=== PATIENT | male | born 1990 | race Caucasian/White ===

== ENCOUNTER 2017-05-30 19:10 | Emergency (ER) | payer BC, OTHER ==
--- NOTE | 2017-05-30 19:26 | EDM.PDOC ---
ED HPI GENERAL MEDICAL PROBLEM - General Chief Complaint: Lower Extremity Injury/Pain Stated Complaint: PAIN/SWELLING LT FOOT Time Seen by Provider: 05/30/17 19:18 - History of Present Illness INITIAL COMMENTS - FREE TEXT/NARRATIVE: HISTORY AND PHYSICAL: History of present illness: Patient is a 26-year-old white male who presents with concern of left foot/ ankle pain he does not recall any particular injury was concerned about radiographs for possible fracture no fever chills nausea vomiting or other complaints Review of systems: As per history of present illness and below otherwise all systems reviewed and negative. Past medical history: As per history of present illness and as reviewed below otherwise noncontributory. Surgical history: As per history of present illness and as reviewed below otherwise noncontributory. Social history: No reported history of drug or alcohol abuse. Family history: As per history of present illness and as reviewed below otherwise noncontributory. Physical exam: HEENT: Atraumatic, normocephalic, pupils reactive, negative for conjunctival pallor or scleral icterus, mucous membranes moist, throat clear, neck supple, nontender, trachea midline. Lungs: Clear to auscultation, breath sounds equal bilaterally, chest nontender. Heart: S1S2, regular, negative for clicks, rubs, or JVD. Abdomen: Soft, nondistended, nontender. Negative for masses or hepatosplenomegaly. Negative for costovertebral tenderness. Pelvis: Stable nontender. Genitourinary: Deferred. Rectal: Deferred. Extremities: Atraumatic, negative for cords or calf pain. Left foot and ankle are without erythema any significant swelling or point tenderness CMS neurovascular exam are unremarkable Neuro: Awake, alert, oriented. Cranial nerves II through XII unremarkable. Cerebellum unremarkable. Motor and sensory unremarkable throughout. Exam nonfocal. Diagnostics: X-ray left foot/ankle Therapeutics: None Impression: #1 atraumatic left foot/ankle pain Definitive disposition and diagnosis as appropriate pending reevaluation and review of above. - Related Data Allergies Allergy/AdvReac Type Severity Reaction Status Date / Time No Known Allergies Allergy Verified 06/06/15 13:35 Home Meds: Home Meds Calcium Polycarbophil [Fiber-Tabs] 625 mg PO 06/06/15 [History] L.acidoph,Paracasei, B.lactis [Probiotic] 1 each PO 06/06/15 [History] Past Medical History Other Neuro History: mulitple buldging discs L1-L4 Social & Family History - Tobacco Use Smoking Status *Q: Never Smoker Second Hand Smoke Exposure: No - Alcohol Use Days Per Week of Alcohol Use: 1 Number of Drinks Per Day: 3 Total Drinks Per Week: 3 - Recreational Drug Use Recreational Drug Use: No Review of Systems - Review of Systems Review Of Systems: ROS reveals no pertinent complaints other than HPI. ED EXAM, GENERAL - Physical Exam Exam: See Below (See dictation) Course - Orders/Labs/Meds Orders: Active Orders 24 hr Category Date Time Status Ankle Min 3V Lt [CR] Stat Exams 05/30/17 19:23 Ordered Foot 2V Lt [CR] Stat Exams 05/30/17 19:23 Ordered Departure - Departure Time of Disposition: 19:25 Disposition: Home, Self-Care 01 Condition: Good Clinical Impression: Left ankle pain - Discharge Information Referrals: Ed Benito [Primary Care Provider] - Additional Instructions: The following information is given to patients seen in the emergency department who are being discharged to home. This information is to outline your options for follow-up care. We provide all patients seen in our emergency department with a follow-up referral. The need for follow-up, as well as the timing and circumstances, are variable depending upon the specifics of your emergency department visit. If you don't have a primary care physician on staff, we will provide you with a referral. We always advise you to contact your personal physician following an emergency department visit to inform them of the circumstance of the visit and for follow-up with them and/or the need for any referrals to a consulting specialist. The emergency department will also refer you to a specialist when appropriate. This referral assures that you have the opportunity for followup care with a specialist. All of these measure are taken in an effort to provide you with optimal care, which includes your followup. Under all circumstances we always encourage you to contact your private physician who remains a resource for coordinating your care. When calling for followup care, please make the office aware that this follow-up is from your recent emergency room visit. If for any reason you are refused follow-up, please contact the [facility] emergency department at and asked to speak to the emergency department charge nurse. Maira Stringer [facility] - Podiatry [address] [place], [place] [id number] Fax: [phone] Motrin/Tylenol as directed for pain follow-up private medical doctor/podiatry as discussed return as needed as discussed - My Orders Last 24 Hours: My Active Orders 05/30/17 19:23 Ankle Min 3V Lt [CR] Stat Foot 2V Lt [CR] Stat - Assessment/Plan Last 24 Hours: My Active Orders 05/30/17 19:23 Ankle Min 3V Lt [CR] Stat Foot 2V Lt [CR] Stat
[2017-05-30 20:47] VITALS: BP 123/78
--- NOTE | 2017-05-31 10:27 | CR ---
EXAM DATE: 05/30/17 PATIENT'S AGE: 26 Patient: ANGELA KRAUSE Facility: [place], [place] Site . Site : 1990 Study: XRay Extremity foot [id number]/19/2017 7:57:15 PM Ordering Physician: Wilson Ya Final Report: Indication: Pain, no history of injury Technique: Two views left foot Comparison: None Findings: Bones: Alignment is normal. No fractures or bone lesions. Joint spaces: Unremarkable. Soft tissues: Unremarkable. Impression: Negative. Dictated by Laurie Galindo MD @ May 30 2017 8:45PM (Electronic Signature) Report Signed by Proxy. MANUEL
--- NOTE | 2017-05-31 10:28 | CR ---
EXAM DATE: 05/30/17 PATIENT'S AGE: 26 Patient: ANGELA KRAUSE Facility: [place], [place] Site . Site : 1990 Study: XRay Extremity ankle [id number]/19/2017 7:57:37 PM Ordering Physician: Wilson Ya Final Report: Left ankle 3 VIEWS INDICATION: Pain. IMPRESSION: No visualized fracture. Alignments anatomic. Joint spaces unremarkable. Dictated by David Mills MD @ May 30 2017 8:08PM (Electronic Signature) Report Signed by Proxy. MANUEL
== END 2017-05-30 20:26 | disposition home or self-care (01) ==
LOC: MW.ED 19:10
DX: M25.572 Pain in left ankle and joints of left foot (principal)
CPT/HCPCS: 73610-26-LT; 73610-LT; 73620-26-LT; 73620-LT; 99282; 99283

== ENCOUNTER 2017-07-08 08:39 | Emergency (ER) | payer OTHER ==
[2017-07-08] MEDS ORDERED: Ketorolac 60 MG/2 ML SDV IM ONE (09:08)
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
[2017-07-08 09:35] VITALS: BP 132/76
== END 2017-07-08 09:35 | disposition home or self-care (01) ==
LOC: MW.ED 08:39
DX: G89.29 Other chronic pain (principal); M54.5 Low back pain
CPT/HCPCS: 96372; 99283; J1885; 99284

== ENCOUNTER 2017-07-23 12:47 | Day surgery (SDC) | payer OTHER ==
[~2017-07-23 12:47] MED LIST: Betamethasone Acetate/Betamethasone Sod Phosphate 30 MG/5 ML MDV ONE; Iopamidol 408 MG/ML 50 ML SDV ONE; Lidocaine 2% 5 ML SDV ONE; Ropivacaine 0.5% 5 MG/ML 30 ML SDV ONE
--- NOTE | 2017-07-23 21:27 | OR ---
SURGEON: Alycia Martinez D.O. DATE OF PROCEDURE: 07/23/2017 OR STAFF PRESENT: 1. Quinten Rust RN. 2. Dean Cardenas RN. 3. RT Gm. WOUND CLASSIFICATION: I. PREOPERATIVE DIAGNOSES: 1. Failed back surgery syndrome. 2. Lumbar herniated disk. 3. Lumbar radiculopathy. POSTOPERATIVE DIAGNOSES: 1. Failed back surgery syndrome. 2. Lumbar herniated disk. 3. Lumbar radiculopathy. PROCEDURE PERFORMED: 1. Caudal epidural steroid injection. 2. Fluoroscopic guidance for needle placement. 3. Local with oral Valium for sedation. SCREENING QUESTIONS: The patient answered "no" to all of the following questions: 1. Are you allergic to latex? 2. Do you have a bleeding disorder? 3. Do you have any current local or systemic infections? 4. Are you taking any anti-inflammatories or blood thinners? 5. Do you have any joint replacements, heart valve replacements, or a pacemaker? DESCRIPTION OF PROCEDURE: The patient had the procedure thoroughly explained including all possible risks, benefits and alternatives. Consent was signed in my clinic indicating understanding and willingness to proceed. The patient presented to [facility] [place] and was escorted to the dressing room to disrobe and change into a hospital gown. Preoperative vital signs were taken and stable. The patient reported that Valium was taken prior to the procedure. The patient was brought back to the procedure room and placed in the prone position on the procedure room table. A pillow was placed under the hips in order to flatten the lumbar lordosis. The back was prepped with ChloraPrep and sterilely draped. All personnel in the operating room were dressed in appropriate attire including surgical scrubs, head and shoe covers. This was to ensure sterility while in the treatment room. During the time fluoroscopy was in use, all personnel in the operating room wore lead lloyd with thyroid collars. Sterile technique was used throughout the procedure. The patient was awake and conversant throughout the procedure. There was no evidence of infection at the site of needle insertion. Skeletal landmarks were identified under fluoroscopy for the caudal epidural. Skin was anesthetized with 2% lidocaine with a sterile 27-gauge 1.5 inch needle. Then a 20-gauge Tuohy epidural needle was placed in the epidural space with loss of resistance technique under fluoroscopic guidance. No heme, cerebrospinal fluid, or paresthesias were noted. Isovue-200 contrast dye was injected in 0.2 cubic centimeter increments and seen to outline the epidural space in both AP and lateral views. There was no intravascular flow pattern observed under live fluoroscopy. Then 12 milligrams of Celestone was slowly injected after negative aspiration. The patient tolerated the procedure well. Vital signs were stable during and after the procedure. The staff escorted the patient to the recovery area and the patient was released in stable condition after a brief stay in the recovery room monitored by the nurse. The patient was given both oral and written discharge and follow up instructions with recommendation to follow up given for 2-3 weeks. The patient voiced understanding including understanding of those signs and symptoms that would require emergency care. The patient knows how to contact the office if there are any additional problems or questions in the meantime. PREOPERATIVE PAIN: 5/10. POSTOPERATIVE PAIN: 2/10. FOLLOWUP: Follow up in the Pain Clinic with 3 weeks. BRANDEN ALVAREZ /[id number] MANUEL
== END 2017-07-23 15:12 ==
LOC: MW.SDS 12:47
PROVIDERS: ATTEND Anesthesiology
DX: M96.1 Postlaminectomy syndrome, not elsewhere classified (principal); M21.969 Unspecified acquired deformity of unspecified lower leg; F41.9 Anxiety disorder, unspecified; F98.8 Other specified behavioral and emotional disorders with onset usually occurring in childhood and adolescence; F32.9 Major depressive disorder, single episode, unspecified; N62 Hypertrophy of breast; E66.3 Overweight; M25.373 Other instability, unspecified ankle; M21.42 Flat foot [pes planus] (acquired), left foot; M21.41 Flat foot [pes planus] (acquired), right foot; Q66.89 Other specified congenital deformities of feet; Z79.899 Other long term (current) drug therapy; M51.36 Other intervertebral disc degeneration, lumbar region; M51.16 Intervertebral disc disorders with radiculopathy, lumbar region; M46.97 Unspecified inflammatory spondylopathy, lumbosacral region; Z98.1 Arthrodesis status; Z68.32 Body mass index [BMI] 32.0-32.9, adult
CPT/HCPCS: 36415; 62323; 80053; 83001; 83002; 84402; 84439; 84443; 85025; J0702; J2795; Q9966

== ENCOUNTER 2017-09-04 06:22 | Day surgery (SDC) | payer OTHER ==
[2017-09-04] MEDS ORDERED: Dexamethasone 4 MG/ML 5 ML MDV ONE (07:05)
[2017-09-04] MEDS ORDERED: fentaNYL 100 MCG/2 ML SDV ONE ×3 (07:05→08:59)
[2017-09-04] MEDS ORDERED: Ondansetron 4 MG/2 ML SDV ONE (07:05)
[2017-09-04] MEDS ORDERED: Propofol 200 MG/20 ML SDV ONE (07:05)
[2017-09-04] MEDS ORDERED: Midazolam 1 MG/ML 2 ML SDV ONE (07:05)
--- NOTE | 2017-09-04 07:10 | PCM.PREANE ---
Preanesthetic Assessment - Anesthesia/Transfusion/Family Hx Anesthesia History: Prior Anesthesia Without Reaction Family History of Anesthesia Reaction: No Transfusion History: No Prior Transfusion(s) - Review of Systems General: No Symptoms Pulmonary: No Symptoms Cardiovascular: No Symptoms Gastrointestinal: No Symptoms Neurological: No Symptoms Other: Reports: None - Physical Assessment NPO Status Date: 09/03/17 NPO Status Time: 19:00 O2 Sat by Pulse Oximetry: 97 Respiratory Rate: 16 Vital Signs: Last Vital Signs Temp 36.2 C 09/04/17 06:45 Pulse 57 L 09/04/17 06:45 Resp 16 09/04/17 06:45 BP 128/86 09/04/17 06:45 Pulse Ox 97 09/04/17 06:45 Height: 1.91 m Weight: 111.13 kg ASA Class: 2 Mental Status: Alert & Oriented x3 Dentition: Reports: Normal Dentition ROM/Head Extension: Full Lungs: Clear to Auscultation, Normal Respiratory Effort Cardiovascular: Regular Rate, Regular Rhythm - Allergies Allergies/Adverse Reactions: Allergies Allergy/AdvReac Type Severity Reaction Status Date / Time No Known Allergies Allergy Verified 07/08/17 08:58 - Anesthesia Plan Pre-Op Medication Ordered: None - Acknowledgements Anesthesia Type Planned: General Anesthesia, MAC Pt an Appropriate Candidate for the Planned Anesthesia: Yes Alternatives and Risks of Anesthesia Discussed w Pt/Guardian: Yes Pt/Guardian Understands and Agrees with Anesthesia Plan: Yes Additional Comments: PMH: chronic pain/post laminectomy symdrome, ADD, resting bradycardia PreAnesthesia Questionnaire HEENT History: Reports: Other (See Below) Other HEENT History: wears glasses Cardiovascular History: Reports: None Respiratory History: Reports: Other (See Below) Other Respiratory History: asthma as a child Gastrointestinal History: Reports: Other (See Below) Other Gastrointestinal History: occasional heartburn Genitourinary History: Reports: None Musculoskeletal History: Reports: Back Pain, Chronic, Fracture, Other (See Below ) Other Musculoskeletal History: hx fx elbow, back surgery 2014, Laminectomy, discectomy L4/5 Neurological History: Reports: None Psychiatric History: Reports: ADD, Anxiety, Depression Endocrine/Metabolic History: Reports: None Dermatologic History: Reports: None - Infectious Disease History Infectious Disease History: Reports: Influenza - Past Surgical History Head Surgeries/Procedures: Reports: None HEENT Surgical History: Reports: None Cardiovascular Surgical History: Reports: None Respiratory Surgical History: Reports: None Neurological Surgical History: Reports: Laminectomy - SUBSTANCE USE Smoking Status *Q: Never Smoker Second Hand Smoke Exposure: No Days Per Week of Alcohol Use: 1 Number of Drinks Per Day: 3 Total Drinks Per Week: 3 Recreational Drug Use History: No - HOME MEDS Home Medications: Home Meds Cyanocobalamin/FA/Pyridoxine [Folbic] 1 tab PO BID 09/02/17 [History] Diclofenac Sodium [Voltaren] 1 applic TOP ASDIRECTED PRN 09/02/17 [History] FLUoxetine HCl [Fluoxetine HCl] 20 mg PO DAILY 09/02/17 [History] Ketamine HCl [Ketamine Hydrochloride] 1 applic TOP TID PRN 09/02/17 [History] Lidocaine/Prilocaine [Lidocaine-Prilocaine Cream] 1 applic TOP ASDIRECTED PRN [History] - CURRENT (IN HOUSE) MEDS Current Meds: Current Medications Hydrocodone Bitart/Acetaminophen ([place] 325-5 Mg) 1 tab PO Q4H PRN PRN Reason: Pain Bupivacaine HCl/Epinephrine Bitart (Marcaine 0.25%/Epinephrine 1:200,000) 30 ml INJECT ONETIME ONE Stop: 09/04/17 08:01 Cefazolin Sodium/Dextrose 2 gm (/ Premix) 50 mls @ 100 mls/hr IV ONETIME ONE Stop: 09/04/17 08:29 Lactated Ringer's (Ringers, Lactated) 1,000 mls @ 500 mls/hr IV .BOLUS JONNY Discontinued Medications Dexamethasone (Dexamethasone) Confirm Administered Dose 20 mg .ROUTE .STK-MED ONE Stop: 09/04/17 07:06 Fentanyl (Sublimaze) Confirm Administered Dose 100 mcg .ROUTE .STK-MED ONE Stop: 09/04/17 07:06 Lidocaine HCl (Xylocaine-Mpf 1%) Confirm Administered Dose 5 ml .ROUTE .STK-MED ONE Stop: 09/04/17 07:06 Midazolam HCl (Versed 1 Mg/Ml) Confirm Administered Dose 2 mg .ROUTE .STK-MED ONE Stop: 09/04/17 07:06 Ondansetron HCl (Zofran) Confirm Administered Dose 4 mg .ROUTE .STK-MED ONE Stop: 09/04/17 07:06 Propofol (Diprivan 20 Ml) Confirm Administered Dose 200 mg .ROUTE .STK-MED ONE Stop: 09/04/17 07:06
[2017-09-04] MEDS ORDERED: Bupivacaine 25%/EPINEPHrine/PF 30 ML ONE (07:20)
[2017-09-04] MEDS ORDERED: Rocuronium 10 MG/ML 10 ML Syringe ONE (07:45)
[2017-09-04] MEDS ORDERED: Succinylcholine/Normal Saline 200 MG/10 ML Syringe ONE (07:45)
[2017-09-04] MEDS ORDERED: Glycopyrrolate 0.2 MG/ML SDV ONE (07:52)
[2017-09-04] MEDS ORDERED: Acetaminophen/HYDROcodone 325-5 MG Tab PO PRN (08:00)
[2017-09-04] MEDS ORDERED: Bupivacaine 0.25%/EPINEPHrine 1:200,000 10 ML SDV INJECT ONE (08:00)
[2017-09-04] MEDS ORDERED: Lactated Ringers 1,000 ML IV SCH (08:00)
[2017-09-04] MEDS ORDERED: ceFAZolin 2 GM in Premix Bag 1 BAG IV ONE (08:00)
[2017-09-04] MEDS ORDERED: Mineral Oil/Petrolatum Ophth Oint 3.5 GM Tube ONE (08:02)
[2017-09-04] MEDS ORDERED: fentaNYL 100 MCG/2 ML SDV IVPUSH PRN (08:12)
--- NOTE | 2017-09-04 11:11 | PCM.POSTAN ---
POST ANESTHESIA ASSESSMENT - MENTAL STATUS Mental Status: Alert, Oriented - RESPIRATORY Respiratory Status: Respiratory Rate WNL, Airway Patent, O2 Saturation Stable - CARDIOVASCULAR CV Status: Pulse Rate WNL, Blood Pressure Stable - GASTROINTESTINAL GI Status: No Symptoms - POST OP HYDRATION Hydration Status: Adequate & Stable
--- NOTE | 2017-09-04 11:11 | PCM48HPAN ---
Post Anesthesia Note - EVALUATION WITHIN 48HRS OF ANESTHETIC Vital Signs in Normal Range: Yes Patient Participated in Evaluation: Yes Respiratory Function Stable: Yes Airway Patent: Yes Cardiovascular Function Stable: Yes Hydration Status Stable: Yes Pain Control Satisfactory: Yes Nausea and Vomiting Control Satisfactory: Yes Mental Status Recovered: Yes
[2017-09-04 13:24] VITALS: BP 123/78
--- NOTE | 2017-09-05 14:45 | PCM.OPNOTE ---
- General Post-Op/Procedure Note Date of Surgery/Procedure: 09/05/17 Operative Procedure(s): excision of bilateral gynecomastia Pre Op Diagnosis: bilateral gynecomastia Post-Op Diagnosis: Same Anesthesia Technique: General LMA, Local Primary Surgeon: Krystle Hays Associate Professor Of Education: Laurie Durán Complications: None Condition: Good Free Text/Narrative:: [id number]
--- NOTE | 2017-09-05 21:00 | OR ---
SURGEON: JOSE LANIER MD DATE OF PROCEDURE: 09/04/2017 PREOPERATIVE DIAGNOSIS: Bilateral gynecomastia. POSTOPERATIVE DIAGNOSIS: Bilateral gynecomastia. PROCEDURE: Bilateral mastectomy for bilateral gynecomastia. CONSULTANT INTERNSHIP: ESME Rodriguez. REASON: Retraction, prepping, draping and closure assistance. ANESTHESIA: General with local. INDICATIONS: Mr. Ayoub is a 26-year-old gentleman, who was seen today in evaluation for bilateral gynecomastia. Risks and benefits of the procedure were discussed with him and he is in agreement to proceed. Risks were including, but not limited to, bleeding, infection, damage to underlying or overlying structures, possible need for future interventions and possible scarring. DESCRIPTION OF PROCEDURE: After informed consent was obtained and placed on the chart, the patient was brought to the operating theater and laid in the supine position. After adequate general anesthesia was obtained, the area was prepped and draped and a time-out was completed to confirm side and site. Local anesthesia was then infiltrated into the area after appropriate markings and once adequately marked and anesthetized, a small curvilinear incision was made over the superior aspect of the nipple-areolar complex and extended laterally in an asymmetric fashion for each side was designed and cut through. Dissection was carried through the subcutaneous tissues and to the breast tissue using Bovie electrocautery. A thick flap of approximately 1.5 cm of skin and subcutaneous tissue were maintained and the underlying gynecomastia was then excised en bloc in an elliptical fashion, tapering at the edges to ensure smooth contour. Once this was completed and fully excised, and peeled off the chest wall, the area was copiously irrigated. Meticulous hemostasis was obtained and a minimal amount of liposuction was done to taper the side to allow appropriate contour and free of the fat from its firm attachments. Once this was completed, meticulous hemostasis was obtained. The area was irrigated and closed using deep 3-0 Monocryl stitches for the fascia and then appropriate amount of skin was determined to need excision to lift the nipple-areolar complex approximately 1.5 cm. Once this was designed, it was cut off and the underlying subcutaneous tissue was left in place, stacked under the nipple to create an appropriate projection here. The skin edges were freed up to allow tension-free closure and then the skin was closed using deep 3-0 Monocryl stitches and a running 4-0 subcuticular for the skin. The patient tolerated this well and all counts and needles were correct at the end of the case when symmetric procedure was completed on the opposite side. Once the wounds were closed and dressed with Steri-Strips, fluffs were placed as well as a chest compression dressing. The patient tolerated this well. All counts and needles were correct at the end of the case. FOLLOWUP INSTRUCTIONS: The patient was given a prescription for pain control. He will see us in clinic tomorrow or sooner if any problems, questions, or concerns. HEGGTHE / ANTONIO /[id number] MTDRyland
== END 2017-09-04 11:30 | disposition home or self-care (01) ==
LOC: MW.SDS 06:22
PROVIDERS: ATTEND Plastic Surgery
DX: N62 Hypertrophy of breast (principal); M21.969 Unspecified acquired deformity of unspecified lower leg; F41.9 Anxiety disorder, unspecified; F88 Other disorders of psychological development; F32.9 Major depressive disorder, single episode, unspecified; M79.1 Myalgia; E66.3 Overweight; J45.909 Unspecified asthma, uncomplicated; Z79.899 Other long term (current) drug therapy; Z68.30 Body mass index [BMI] 30.0-30.9, adult; Z98.890 Other specified postprocedural states
CPT/HCPCS: 19304; A9270; J1100; J2250; J2405; J3010; J7120; 00400; 88305; J2704

== ENCOUNTER 2017-11-20 08:06 | Emergency (ER) | payer OTHER ==
--- NOTE | 2017-11-20 08:28 | EDM.PDOC ---
ED HPI GENERAL MEDICAL PROBLEM - General Chief Complaint: Back Pain or Injury Stated Complaint: BACK PAIN Time Seen by Provider: 11/20/17 08:25 Source of Information: Reports: Patient - History of Present Illness INITIAL COMMENTS - FREE TEXT/NARRATIVE: HISTORY AND PHYSICAL: History of present illness: [Patient with history of disc bulge and laminectomy presents with acute on chronic low back pain, he has followed with Dr. Taylor and is using Lidoderm patches as well as another topical anti-inflammatory with some benefit however today pain is 8 out of 10 nonradiating he does experience usual radiculopathy on the right this is ongoing no footdrop saddle anesthesia bowel or urine symptoms No Fever nausea vomiting chills sweats] Denies new injury or trauma Review of systems: As per history of present illness and below otherwise all systems reviewed and negative. Past medical history: As per history of present illness and as reviewed below otherwise noncontributory. Surgical history: As per history of present illness and as reviewed below otherwise noncontributory. Social history: No reported history of drug or alcohol abuse. Family history: As per history of present illness and as reviewed below otherwise noncontributory. Physical exam: HEENT: Atraumatic, normocephalic, pupils reactive, negative for conjunctival pallor or scleral icterus, mucous membranes moist, throat clear, neck supple, nontender, trachea midline. Lungs: Clear to auscultation, breath sounds equal bilaterally, chest nontender. Heart: S1S2, regular, negative for clicks, rubs, or JVD. Abdomen: Soft, nondistended, nontender. Negative for masses or hepatosplenomegaly. Negative for costovertebral tenderness. Pelvis: Stable nontender. Genitourinary: Deferred. Rectal: Deferred. Extremities: Atraumatic, negative for cords or calf pain. Neurovascular unremarkable. Neuro: Awake, alert, oriented. Cranial nerves II through XII unremarkable. Cerebellum unremarkable. Motor and sensory unremarkable throughout. Exam nonfocal. Diagnostics: [Clinical ] Therapeutics: [ Toradol 60 IM Medrol Dosepak Toradol 10 mg by mouth 3 times a day #15 no refi ll] Impression: [ acute on chronic low back pain ] Definitive disposition and diagnosis as appropriate pending reevaluation and review of above. - Related Data Allergies Allergy/AdvReac Type Severity Reaction Status Date / Time No Known Allergies Allergy Verified 07/08/17 08:58 Home Meds: Home Meds Diclofenac Sodium [Voltaren] 1 applic TOP ASDIRECTED PRN 09/02/17 [History] FLUoxetine HCl [Fluoxetine HCl] 20 mg PO DAILY 09/02/17 [History] Lidocaine/Prilocaine [Lidocaine-Prilocaine Cream] 1 applic TOP ASDIRECTED PRN [History] Past Medical History HEENT History: Reports: Other (See Below) Other HEENT History: wears glasses Cardiovascular History: Reports: None Respiratory History: Reports: Other (See Below) Other Respiratory History: asthma as a child Gastrointestinal History: Reports: Other (See Below) Other Gastrointestinal History: occasional heartburn Genitourinary History: Reports: None Musculoskeletal History: Reports: Back Pain, Chronic, Fracture, Other (See Below ) Other Musculoskeletal History: hx fx elbow, back surgery 2014, Laminectomy, discectomy L4/5 Neurological History: Reports: None Psychiatric History: Reports: ADD, Anxiety, Depression Endocrine/Metabolic History: Reports: None Dermatologic History: Reports: None - Infectious Disease History Infectious Disease History: Reports: Influenza - Past Surgical History Head Surgeries/Procedures: Reports: None HEENT Surgical History: Reports: None Cardiovascular Surgical History: Reports: None Respiratory Surgical History: Reports: None Neurological Surgical History: Reports: Laminectomy Social & Family History - Family History Family Medical History: Noncontributory - Tobacco Use Smoking Status *Q: Never Smoker Second Hand Smoke Exposure: No - Caffeine Use Caffeine Use: Reports: Coffee - Alcohol Use Days Per Week of Alcohol Use: 1 Number of Drinks Per Day: 3 Total Drinks Per Week: 3 - Recreational Drug Use Recreational Drug Use: No ED ROS GENERAL - Review of Systems Review Of Systems: ROS reveals no pertinent complaints other than HPI. ED EXAM, GENERAL - Physical Exam Exam: See Below Course - Vital Signs Last Recorded V/S: Last Vital Signs Temp 96.6 F 11/20/17 08:15 Pulse 65 11/20/17 08:15 Resp 14 11/20/17 08:15 BP 120/69 11/20/17 08:15 Pulse Ox 95 11/20/17 08:15 Departure - Departure Time of Disposition: 08:27 Disposition: Home, Self-Care 01 Condition: Good Clinical Impression: Acute exacerbation of chronic low back pain - Discharge Information Referrals: Ed Castro PA [Primary Care Provider] - Additional Instructions: The following information is given to patients seen in the emergency department who are being discharged to home. This information is to outline your options for follow-up care. We provide all patients seen in our emergency department with a follow-up referral. The need for follow-up, as well as the timing and circumstances, are variable depending upon the specifics of your emergency department visit. If you don't have a primary care physician on staff, we will provide you with a referral. We always advise you to contact your personal physician following an emergency department visit to inform them of the circumstance of the visit and for follow-up with them and/or the need for any referrals to a consulting specialist. The emergency department will also refer you to a specialist when appropriate. This referral assures that you have the opportunity for follow-up care with a specialist. All of these measure are taken in an effort to provide you with optimal care, which includes your follow-up. Under all circumstances we always encourage you to contact your private physician who remains a resource for coordinating your care. When calling for follow-up care, please make the office aware that this follow-up is from your recent emergency room visit. If for any reason you are refused follow-up, please contact the [facility] emergency department at and asked to speak to the emergency department charge nurse.
[2017-11-20] MEDS: Ketorolac 60 MG/2 ML SDV IM ONE (08:39)
[2017-11-20 09:11] VITALS: BP 117/76
== END 2017-11-20 09:07 | disposition home or self-care (01) ==
LOC: MW.ED 08:06
DX: M54.5 Low back pain (principal); G89.29 Other chronic pain; Z79.899 Other long term (current) drug therapy
CPT/HCPCS: 96372; 99283; J1885

== ENCOUNTER 2018-02-23 21:51 | Emergency (ER) | payer OTHER ==
[2018-02-23] MEDS ORDERED: Diphtheria,Pertussis(Acell),Tetanus Vaccine 0.5 ML Syringe IM ONE (22:07)
[2018-02-23] MEDS ORDERED: Cephalexin 500 MG Cap PO ONE (22:07)
[2018-02-23] MEDS ORDERED: Bacitracin Oint 1 GM U/D Packet TOP ONE (22:08)
--- NOTE | 2018-02-23 22:13 | EDM.PDOC ---
ED HPI GENERAL MEDICAL PROBLEM - General Chief Complaint: Laceration Stated Complaint: LACERATION LT THUMB Time Seen by Provider: 02/23/18 22:03 - History of Present Illness INITIAL COMMENTS - FREE TEXT/NARRATIVE: HISTORY AND PHYSICAL: History of present illness: The patient is a 27-year-old male who presents after cutting his left thumb with a drill as he was working on a metal plate. The patient is right-hand dominant and is unsure of his last tetanus shot and was at home doing this work when he cut the area. He denies any other injuries to the rest of the fingers or the hand on the left side and was in his usual state of good health prior to arrival. Patient says he's able to move the thumb without defects or deformities and there is no numbness or tingling in the thumb. Review of systems: As per history of present illness and below otherwise all systems reviewed and negative. Past medical history: As per history of present illness and as reviewed below otherwise noncontributory. Surgical history: As per history of present illness and as reviewed below otherwise noncontributory. Social history: No reported history of drug or alcohol abuse. Family history: As per history of present illness and as reviewed below otherwise noncontributory. Physical exam: General: Well-developed well-nourished man who is nontoxic and vital signs are noted by me HEENT: Atraumatic, normocephalic, negative for conjunctival pallor or scleral icterus, mucous membranes moist, throat clear, neck supple, nontender, trachea midline. Lungs: Clear to auscultation, breath sounds equal bilaterally, chest nontender. Heart: S1S2, regular rate and rhythm no overt murmurs Abdomen: Soft, nondistended, nontender. NABS Pelvis: Deferred Genitourinary: Deferred. Rectal: Deferred. Extremities: Atraumatic, full range of motion of all extremities with the exception of the left thumb where there is a 4.5 cm linear laceration originating on the palmar surface of the thumb near the MCP and extending around the proximal phalanx and extending up to the PIP on the index finger side. Able to flex and extend and oppose against resistance without deficits. The legs are negative for cords or calf pain. Neurovascular unremarkable. Neuro: Awake, alert, oriented. Cranial nerves II through XII unremarkable. Cerebellum unremarkable. Motor and sensory unremarkable throughout. Exam nonfocal. Diagnostics: [] Therapeutics: Cleansing of the wound lidocaine for digital block and local infiltration, Keflex Procedure note: After the wound was cleansed by nursing a block and local infiltration of lidocaine without epinephrine was infused and the wound was explored. The wound was prepped and draped first then explored and no foreign bodies were appreciated. The skin edges were reapproximated using simple interrupted sutures for a total number of # 10 sutures of 4-0 nylon. Bacitracin and a tube gauze were applied and the patient tolerated the procedure well. There were no complications. The wound was simple to mildly complex due to the depth and location. The patient will be given Keflex for home Impression: Left thumb laceration Definitive disposition and diagnosis as appropriate pending reevaluation and review of above. Left 1-Thumb Pain Score (Numeric/FACES): 4 - Related Data Allergies Allergy/AdvReac Type Severity Reaction Status Date / Time No Known Allergies Allergy Verified 02/07/18 09:18 Home Meds: Home Meds FLUoxetine HCl [Fluoxetine HCl] 20 mg PO DAILY 09/02/17 [History] Methylphenidate HCl [Methylphenidate ER] 18 mg PO DAILY 02/07/18 [History] Past Medical History HEENT History: Reports: Other (See Below) Other HEENT History: wears glasses Cardiovascular History: Reports: None Respiratory History: Reports: Other (See Below) Other Respiratory History: asthma as a child Gastrointestinal History: Reports: Other (See Below) Other Gastrointestinal History: occasional heartburn Genitourinary History: Reports: None Musculoskeletal History: Reports: Back Pain, Chronic, Fracture, Other (See Below ) Other Musculoskeletal History: hx fx elbow, back surgery 2015, Laminectomy, discectomy L4/5 Neurological History: Reports: None Psychiatric History: Reports: ADD, Anxiety, Depression Endocrine/Metabolic History: Reports: None Dermatologic History: Reports: None - Infectious Disease History Infectious Disease History: Reports: Influenza - Past Surgical History Head Surgeries/Procedures: Reports: None HEENT Surgical History: Reports: None Cardiovascular Surgical History: Reports: None Respiratory Surgical History: Reports: None Neurological Surgical History: Reports: Laminectomy Social & Family History - Family History Family Medical History: Noncontributory - Tobacco Use Smoking Status *Q: Never Smoker - Caffeine Use Caffeine Use: Reports: Coffee ED ROS GENERAL - Review of Systems Review Of Systems: ROS reveals no pertinent complaints other than HPI. ED EXAM, SKIN/RASH Exam: See Below (See dictation) Course - Vital Signs Last Recorded V/S: Last Vital Signs Temp 36.2 C 02/23/18 22:02 Pulse 74 02/23/18 22:02 Resp 18 02/23/18 22:02 BP 139/82 02/23/18 22:02 Pulse Ox 97 02/23/18 22:02 - Orders/Labs/Meds Orders: Active Orders 24 hr Category Date Time Status Vaccines to be Administered [RC] PER UNIT ROUTINE Care 02/23/18 22:08 Active Meds: Medications Discontinued Medications Generic Name Dose Route Start Last Admin Trade Name Freq PRN Reason Stop Dose Admin Bacitracin 1 dose 02/23/18 22:08 02/23/18 22:22 Bacitracin Oint 1 Gm TOP 02/23/18 22:09 1 dose ONETIME ONE Administration Cephalexin 500 mg 02/23/18 22:07 02/23/18 22:23 Keflex PO 02/23/18 22:08 500 mg ONETIME ONE Administration Diphtheria/Tetanus/Acell Pertussis 0.5 ml 02/23/18 22:07 02/23/18 22:15 Adacel IM 02/23/18 22:08 0.5 ml .ONCE ONE Administration Lidocaine HCl Confirm 02/23/18 22:15 02/23/18 22:24 Xylocaine-Mpf 1% Administered 02/23/18 22:16 Not Given Dose 10 mls @ as directed .ROUTE .STK-MED ONE Lidocaine HCl 10 ml 02/23/18 22:07 02/23/18 22:14 Xylocaine-Mpf 1% INJECT 02/23/18 22:08 10 ml ONETIME ONE Administration Departure - Departure Time of Disposition: 22:44 Disposition: Home, Self-Care 01 Condition: Good Clinical Impression: Laceration of left thumb Qualifiers: Encounter type: initial encounter Damage to nail status: without damage Foreign body presence: without foreign body Qualified Code(s): S61.012A - Laceration without foreign body of left thumb without damage to nail, initial encounter - Discharge Information Referrals: PCP,None [Primary Care Provider] - Forms: ED Department Discharge Additional Instructions: The following information is given to patients seen in the emergency department who are being discharged to home. This information is to outline your options for follow-up care. We provide all patients seen in our emergency department with a follow-up referral. The need for follow-up, as well as the timing and circumstances, are variable depending upon the specifics of your emergency department visit. If you don't have a primary care physician on staff, we will provide you with a referral. We always advise you to contact your personal physician following an emergency department visit to inform them of the circumstance of the visit and for follow-up with them and/or the need for any referrals to a consulting specialist. The emergency department will also refer you to a specialist when appropriate. This referral assures that you have the opportunity for followup care with a specialist. All of these measure are taken in an effort to provide you with optimal care, which includes your followup. Under all circumstances we always encourage you to contact your private physician who remains a resource for coordinating your care. When calling for followup care, please make the office aware that this follow-up is from your recent emergency room visit. If for any reason you are refused follow-up, please contact the [facility] emergency department at and ask to speak to the emergency department charge nurse. [facility] Specialty clinic-Plastic Surgery and Hand Surgery Professional [address] [address] Keep dressing was placed on in the ED for the next 24 hours then remove and cleanse with mild soap and water pat dry and apply bacitracin or Neosporin. Please try to leave open to air and if you must cover it please use gauze dressing not Band-Aids. The sutures Should come out in 7 days either here in the emergency department or you may follow-up with our hand specialist using resources given to above. If you have any numbness tingling or trouble moving the thumb please follow-up with a hand specialist. Return to the ER sooner as needed and as discussed. Please take Keflex as directed and given to you from [employer] - My Orders Last 24 Hours: My Active Orders 02/23/18 22:08 Vaccines to be Administered [RC] PER UNIT ROUTINE - Assessment/Plan Last 24 Hours: My Active Orders 02/23/18 22:08 Vaccines to be Administered [RC] PER UNIT ROUTINE
[2018-02-23] MEDS ORDERED: Lidocaine 1% 0 ML ONE (22:15)
[2018-02-23 23:13] VITALS: BP 117/67
== END 2018-02-23 23:05 | disposition home or self-care (01) ==
LOC: MW.ED 21:51
DX: S61.012A Laceration without foreign body of left thumb without damage to nail, initial encounter (principal); Z79.899 Other long term (current) drug therapy; Z23 Encounter for immunization; W29.8XXA Contact with other powered hand tools and household machinery, initial encounter
CPT/HCPCS: 12002; 90471; 90715; 99283; A9270

== ENCOUNTER 2020-01-20 07:00 | Emergency (ER) | payer OTHER ==
--- NOTE | 2020-01-20 07:20 | EDM.PDOC ---
ED HPI GENERAL MEDICAL PROBLEM - General Chief Complaint: Back Pain or Injury Stated Complaint: BACK PAIN Time Seen by Provider: 01/20/20 07:18 Source of Information: Reports: Patient History Limitations: Reports: No Limitations - History of Present Illness INITIAL COMMENTS - FREE TEXT/NARRATIVE: 29-year-old male with history of L3 and L4 fusion, laminectomy, discectomy presents with acute onset low back pain last night. He was sitting and turned and felt an acute onset pain in the lumbar region. Pain has been worsening since. Pain is moderate, localized to the lumbar region, nonradiating, constant , exacerbated with movement. He has taken Tylenol, 800 mg ibuprofen, diclofenac gel with no relief. He denies fever, chills, urinary or fecal incontinence, focal numbness or weakness. ROS: A 10-point review of systems, other than pertinent positives and negatives as stated per HPI, is otherwise negative PHYSICAL EXAM General: AOx4, GCS = 15, moderate distress HEENT: dry mucous membrane Neck: supple, no meningismus, no Kernig or Brudzinski Cardiac: S1S2 RRR Respiratory: CTAB, no crackles or rales, no wheezing Abdomen: Soft, nontender, no rebound or guarding, nondistended, no pulsatile mass. Back: lumbar spine ttp, left lumbar paraspinal tenderness and swelling Musculoskeletal: NVI distally, no deformity Neuro: No focal deficits. MEDICAL DECISION MAKING: I reviewed the patients past medical records, lab and radiographic findings. I discussed the case with family members. My differential diagnosis included: Low back strain, herniation, fracture, no suspicion for cord compression. Patient's back pain is suggestive of musculoskeletal strain. There are no complaints of urinary or fecal incontinence, focal numbness or weakness. The patient has a normal gait in the ER. There is no evidence of fever, IV drug use , recent back surgery, or immunocompromised state. I do not suspect caude equine syndrome or cord compression which would warrant further imaging. back Pain Score (Numeric/FACES): 6 - Related Data Allergies Allergy/AdvReac Type Severity Reaction Status Date / Time No Known Allergies Allergy Verified 01/20/20 07:27 Home Meds: Home Meds FLUoxetine HCl [Fluoxetine HCl] 20 mg PO DAILY 09/02/17 [History] Methylphenidate HCl [Methylphenidate ER] 18 mg PO DAILY 02/07/18 [History] Cyclobenzaprine [Flexeril] 10 mg PO BID #10 tab 01/20/20 [Rx] Past Medical History HEENT History: Reports: Other (See Below) Other HEENT History: wears glasses Cardiovascular History: Reports: None Respiratory History: Reports: Other (See Below) Other Respiratory History: asthma as a child Gastrointestinal History: Reports: Other (See Below) Other Gastrointestinal History: occasional heartburn Genitourinary History: Reports: None Musculoskeletal History: Reports: Back Pain, Chronic, Fracture, Other (See Below ) Other Musculoskeletal History: hx fx elbow, back surgery 2015, Laminectomy, discectomy L4/5 Neurological History: Reports: None Psychiatric History: Reports: ADD, Anxiety, Depression Endocrine/Metabolic History: Reports: None Dermatologic History: Reports: None - Infectious Disease History Infectious Disease History: Reports: Influenza - Past Surgical History Head Surgeries/Procedures: Reports: None HEENT Surgical History: Reports: None Cardiovascular Surgical History: Reports: None Respiratory Surgical History: Reports: None Neurological Surgical History: Reports: Laminectomy Social & Family History - Family History Family Medical History: Noncontributory - Caffeine Use Caffeine Use: Reports: Coffee ED ROS GENERAL - Review of Systems Review Of Systems: See Below (see dictation) ED EXAM,LOWER BACK PAIN/INJURY - Physical Exam Exam: See Below (see dictation) Course - Vital Signs Last Recorded V/S: Last Vital Signs Temp 96.8 F L 01/20/20 07:28 Pulse 81 01/20/20 07:28 Resp 18 01/20/20 07:28 BP 129/99 H 01/20/20 07:28 Pulse Ox 99 01/20/20 07:28 - Orders/Labs/Meds Meds: Medications Discontinued Medications Generic Name Dose Route Start Last Admin Trade Name Ericka PRN Reason Stop Dose Admin Ketorolac Tromethamine 60 mg 01/20/20 07:56 01/20/20 08:10 Toradol IM 01/20/20 07:57 60 mg ONETIME ONE Administration Orphenadrine Citrate 60 mg 01/20/20 07:56 01/20/20 08:10 Norflex IM 01/20/20 07:57 60 mg ONETIME ONE Administration - Re-Assessments/Exams Free Text/Narrative Re-Assessment/Exam: 01/20/20 0858 After treatments and a prolonged observation period in the ER, the patient improved clinically and is stable for discharge. I performed a repeat examination and the patient has not demonstrated any new abnormal findings. Patient exhibits normal vital signs and has exhibited a normal gait. I advised the patient to return to the ER for reevaluation if symptoms worsened, and to follow up with their PCP within 2-3 days. Departure - Departure Time of Disposition: 08:59 Disposition: Home, Self-Care 01 Condition: Good Clinical Impression: Low back pain Qualifiers: Back pain laterality: midline Sciatica presence: without sciatica Qualified Code(s): M54.5 - Low back pain - Discharge Information *PRESCRIPTION DRUG MONITORING PROGRAM REVIEWED*: Not Applicable *COPY OF PRESCRIPTION DRUG MONITORING REPORT IN PATIENT SHITAL: Not Applicable Prescriptions: Cyclobenzaprine [Flexeril] 10 mg PO BID #10 tab Instructions: Acute Back Pain, Adult, Back Injury Prevention, [id number], What You Need to Know About Chronic Back Pain Referrals: PCP,Not In Area [Primary Care Provider] - Forms: ED Department Discharge Additional Instructions: The following information is given to patients seen in the emergency department who are being discharged to home. This information is to outline your options for follow-up care. We provide all patients seen in our emergency department with a follow-up referral. The need for follow-up, as well as the timing and circumstances, are variable depending upon the specifics of your emergency department visit. If you don't have a primary care physician on staff, we will provide you with a referral. We always advise you to contact your personal physician following an emergency department visit to inform them of the circumstance of the visit and for follow-up with them and/or the need for any referrals to a consulting specialist. The emergency department will also refer you to a specialist when appropriate. This referral assures that you have the opportunity for follow-up care with a specialist. All of these measure are taken in an effort to provide you with optimal care, which includes your follow-up. Under all circumstances we always encourage you to contact your private physician who remains a resource for coordinating your care. When calling for follow-up care, please make the office aware that this follow-up is from your recent emergency room visit. If for any reason you are refused follow-up, please contact the [facility] Emergency Department at and asked to speak to the emergency department charge nurse. If you do not have a primary care doctor, please follow up with the clinics below within 3-[address] - [facility] [address] [place] [id number] [address] [address] Sepsis Event Note (ED) - Focused Exam Vital Signs: Vital Signs Temp Pulse Resp BP Pulse Ox 01/20/20 07:28 96.8 F L 81 18 129/99 H 99
[2020-01-20] MEDS ORDERED: Ketorolac 60 MG/2 ML SDV IM ONE (07:56)
--- NOTE | 2020-01-20 08:49 | CR ---
Lumbar spine: AP, lateral and coned-down lateral views centered to the lumbosacral junction were obtained. Previous surgery is noted at L4-5 with posterior laminectomy and transpedicle screws. Intervertebral disc fixation also noted at L3-4. Mild disc space narrowing noted at L3-4. Minimal posterior disc space narrowing is noted at T12-L1, L1-2 and L2-3. Vertebral body heights are maintained. Slight posterior osteophytes are noted at L2-3 and L3-4. Minimal scoliosis is noted. Sacroiliac joints are unremarkable. No acute fracture or other bony abnormality is appreciated. Impression: 1. Prior surgery at L4-5. 2. Mild degenerative change and mild scoliosis. Diagnostic code #3 This report was dictated in MDT
[2020-01-20 09:34] VITALS: BP 139/85; PULSE 67
== END 2020-01-20 09:32 | disposition home or self-care (01) ==
LOC: MW.ED 07:00
DX: M54.5 Low back pain (principal); F41.9 Anxiety disorder, unspecified; F32.9 Major depressive disorder, single episode, unspecified; F98.8 Other specified behavioral and emotional disorders with onset usually occurring in childhood and adolescence; Z79.899 Other long term (current) drug therapy
CPT/HCPCS: 72100; 96372; 99283; J1885; J2360

== ENCOUNTER 2022-10-21 17:54 | Emergency (ER) | payer BC ==
[2022-10-21] MEDS ORDERED: Sodium Chloride 0.9% 2.5 ML Syringe FLUSH PRN (19:08)
[2022-10-21] MEDS ORDERED: Sodium Chloride 0.9% 10 ML Syringe FLUSH PRN (19:08)
[2022-10-21] MEDS ORDERED: Sodium Chloride 0.9% 1,000 ML IV STA (19:08)
[2022-10-21 20:08] LABS: CARBON DIOXIDE,CO2 29.3 mmol/L (21.0-32.0); POTASSIUM,K 3.8 mmol/L (3.5-5.1)
[2022-10-21 21:33] VITALS: BP 136/92; PULSE 81
== END 2022-10-21 21:31 | disposition home or self-care (01) ==
LOC: MW.ED 17:54
DX: K76.0 Fatty (change of) liver, not elsewhere classified (principal)
CPT/HCPCS: 36415; 76705; 80053; 83690; 85025; 96360; 99284; J3490; J7030

== ENCOUNTER 2023-07-24 10:23 | Emergency (ER) | payer BC ==
[2023-07-24] MEDS ORDERED: Sodium Chloride 0.9% 10 ML Syringe FLUSH PRN (11:07)
[2023-07-24] MEDS ORDERED: Sodium Chloride 0.9% 2.5 ML Syringe FLUSH PRN (11:07)
[2023-07-24] MEDS ORDERED: Sodium Chloride 0.9% 1,000 ML IV STA ×2 (11:08→11:40)
[2023-07-24] MEDS ORDERED: Ondansetron 4 MG/2 ML SDV IVPUSH STA (11:08)
[2023-07-24] MEDS ORDERED: Ketorolac 30 MG/ML SDV IVPUSH STA (11:08)
[2023-07-24 11:26] LABS: BASOPHILS ABSOLUTE AUTO 0.04 K/uL (0.00-0.20); BASOPHILS PERCENT AUTO 0.4 % (0.0-1.0); EOSINOPHILS ABSOLUTE AUTO 0.09 K/uL (0.00-0.45); EOSINOPHILS PERCENT AUTO 0.8 % (0.0-6.0); HEMOGLOBIN 17.4 g/dL (14.0-18.0); IMMATURE GRAN ABSOLUTE AUTO 0.03 K/uL (0.00-0.05); IMMATURE GRAN PERCENT AUTO 0.3 % (0.0-0.4); LYMPHOCYTES ABSOLUTE AUTO 0.91 K/uL (1.00-4.80); LYMPHOCYTES PERCENT AUTO 8.1 % (24.0-44.0); MEAN CORPUSCULAR HEMOGLOBIN 30.1 pg (28.0-32.0); MEAN CORPUSCULAR HGB CONC 34.8 g/dL (32.0-36.0); MEAN CORPUSCULAR VOLUME 86.4 fL (83.0-99.0); MEAN PLATELET VOLUME 9.5 fL (9.4-12.4); MONOCYTES PERCENT AUTO 7.1 % (0.0-8.0); NEUTROPHILS ABSOLUTE AUTO 9.34 K/uL (1.80-7.70); NEUTROPHILS PERCENT AUTO 83.3 % (41.0-71.0); PLATELET COUNT,PLT 311 K/uL (150-400); RED BLOOD CELL COUNT 5.79 M/uL (4.52-5.90); WHITE BLOOD CELL COUNT,WBC 11.21 K/uL (3.9-11.3)
[2023-07-24 11:49] LABS: CORONAVIRUS COVID-19 NAA NEGATIVE (NEGATIVE); INFLUENZA A NAA NEGATIVE (NEGATIVE); INFLUENZA B NAA NEGATIVE (NEGATIVE); RESPIRATORY SYNCYTIAL VIR NAA NEGATIVE (NEGATIVE)
[2023-07-24 11:57] LABS: A/G RATIO 1.2 (0.9-1.6); ALBUMIN 3.9 g/dL (3.4-5.0); BILIRUBIN TOTAL 1.1 mg/dL (0.2-1.0); CARBON DIOXIDE,CO2 26.7 mmol/L (21.0-32.0); CREATININE 1.2 mg/dL (0.8-1.3); EST CRCL DRUG DOSING (CG) 95.2 mL/min; POTASSIUM,K 3.6 mmol/L (3.5-5.1); PROTEIN TOTAL,TP 7.1 g/dL (6.4-8.2)
[2023-07-24 13:18] VITALS: BP 142/91; PULSE 89
== END 2023-07-24 13:17 | disposition home or self-care (01) ==
LOC: MW.ED 10:23
DX: R11.2 Nausea with vomiting, unspecified (principal); R19.7 Diarrhea, unspecified; Z20.822 Contact with and (suspected) exposure to COVID-19
CPT/HCPCS: 0241U; 36415; 80053; 83690; 83735; 85025; 96361; 96374; 96375; 99284; J1885; J2405; J3490; J7030